=== PATIENT | male | born 1985 | race Caucasian/White ===

== ENCOUNTER 2017-01-02 18:19 | Emergency (ER) | payer OTHER ==
[~2017-01-02] VITALS: Ht 172.7 cm; Wt 72.6 kg
[2017-01-02 19:47] VITALS: BP 157/104
--- NOTE | 2017-01-02 19:54 | NUR ---
ekg done, NSR
--- NOTE | 2017-01-02 20:23 | NUR ---
PT TAKEN TO [facility] FROM [facility]
--- NOTE | 2017-01-02 20:28 | NUR ---
PT RETURN FROM XRAY TO LOBBY
--- NOTE | 2017-01-02 20:39 | NUR ---
PT TAKEN TO BED 4
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
[2017-01-02] MEDS ORDERED: LIDOCAINE VISCOUS 2% 20 ML UDC PO ONE (21:05)
[2017-01-02] MEDS ORDERED: BELLADONNA/PHENOBARBITAL 5 ML ORASYR PO ONE (21:05)
[2017-01-02] MEDS ORDERED: ALUMINUM HYD/MAG/SIMETHICONE 30 ML UDC PO ONE (21:05)
--- NOTE | 2017-01-02 21:17 | NUR ---
Dr. Reynolds evaluating patient at bedside.
--- NOTE | 2017-01-02 21:45 | NUR ---
Patient discharged with v/s stable. Written and verbal after care instructions given and explained. Patient alert, oriented and verbalized understanding of instructions. Ambulatory with steady gait. All questions addressed prior to discharge. ID band removed. Patient advised to follow up with PMD. Rx of MOTRIN 800MG PO given. Patient educated on indication of medication including possible reaction and side effects. Opportunity to ask questions provided and answered.
[2017-01-02 21:47] VITALS: BP 140/83
== END 2017-01-02 21:45 | disposition home or self-care (01) ==
LOC: MED 18:19
DX: M94.0 Chondrocostal junction syndrome [Tietze] (principal); J45.909 Unspecified asthma, uncomplicated; I10 Essential (primary) hypertension; F17.200 Nicotine dependence, unspecified, uncomplicated

== ENCOUNTER 2017-05-24 19:32 | Emergency (ER) | payer OTHER ==
[~2017-05-24] VITALS: Ht 172.7 cm; Wt 77.1 kg
[2017-05-24 20:12] VITALS: BP 138/89
--- NOTE | 2017-05-24 21:54 | NUR ---
TO ER OF4
--- NOTE | 2017-05-24 22:00 | NUR ---
PT BIB FAMILY C/O SEVERE RT HAND PAIN,AND SWELLING X 1-3 WEEKS S/P REPETITIVE HAND MOVEMENT AT WORK. PT STS" I KEEP ON ASKING BY BOSS TO SEND ME TO THE DOCTORS OFFICE BACAUSE I CANT TAKE THIS PAIN ANY MORE. BUT THEY KEEP TELLING ME NO. 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 NOTED TO RT HAND, CAP REFILL-IMM. PT DENIES N/V/D; SKIN IS INTACT, PINK/WARM/DRY; AAOX4, PERRL, WITH EVEN AND STEADY GAIT; LUNGS CLEAR BL, BREATHING UNLABORED; HR EVEN AND REGULAR, BL PERIPHERAL PULSES PRESENT; BS ACTIVE X4, NO TENDERNESS TO PALPATION. PT DENIES ANY FEVER, CP, SOB, OR COUGH AT THIS TIME; PT STATES 10/10 PAIN AT THIS TIME; VSS; PATIENT POSITIONED FOR COMFORT; HOB ELEVATED; BEDRAILS UP X2; BED DOWN. ICE PACK GIVEN FOR PAIN.
--- NOTE | 2017-05-24 22:43 | NUR ---
Juvencio schrader in [facility] - 05/24/17 at 2244 by MEDCHRISTINA Patient being evaluated by physician.
--- NOTE | 2017-05-24 22:50 | NUR ---
Patient being evaluated by physician.
[2017-05-24] MEDS ORDERED: oxyCODONE/APAP 5/325 MG 1 TAB TAB PO ONE (23:00)
[2017-05-24 23:38] VITALS: BP 131/85
--- NOTE | 2017-05-24 23:38 | NUR ---
Patient discharged with v/s stable. Written and verbal after care instructions given and explained. Patient alert, oriented and verbalized understanding of instructions. Ambulatory with steady gait. All questions addressed prior to discharge. ID band removed. Patient advised to follow up with PMD. Rx of IBUPROFEN, PERCOCET given. Patient educated on indication of medication including possible reaction and side effects. Opportunity to ask questions provided and answered.
== END 2017-05-24 23:38 | disposition home or self-care (01) ==
LOC: MED 19:32
CPT/HCPCS: 73130; 99284

== ENCOUNTER 2018-03-25 07:47 | Emergency (ER) | payer SELFPAY ==
[~2018-03-25] VITALS: Ht 172.7 cm; Wt 76.2 kg
[2018-03-25 07:49] VITALS: BP 140/84
--- NOTE | 2018-03-25 07:55 | NUR ---
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 PT, STATES " MY ANKLE HURTS A LOT 10/10 RADIATING PAIN BECAUSE LAST NIGHT IN SOFTBALL I HURT MY ANKLE". 10/10 RADIATING PAIN FROM L ANKLE DOWN TO FOOT THAT IS DESCRIBES SHARP AND CONTINOUS. RR EVENA ND UNLABORED . SKIN PINK , WARM , AND DRY, CAP REFILL ON BILATERAL HANDS AND FEET LESS THAN 3 SEC. NO BRUISING NOTED. SWELLING TO THE L ANKLE NOTED. L ANKLE SENSITIVE TO TOUCH. DENIES N/V/D. NO SOB. NO CHEST PAIN, AAO X 4. ER. . NOTIFIED. WILL CONTINUE TO MONITOR.
--- NOTE | 2018-03-25 07:55 | NUR ---
TAKEN BY WHEELCHAIR TO BED 2
--- NOTE | 2018-03-25 08:00 | NUR ---
PT. TAKEN TO XRAY BY CORPORATE ACCOUNTANT VIA WHEELCHAIR. Addendum: 03/25/18 at 0811 by [email or web address] ELEVATED LLG ; PAIN 09/04 AT THIS TIME.
--- NOTE | 2018-03-25 08:11 | NUR ---
PT RETURNED FROM X RAY.
[2018-03-25] MEDS ORDERED: IBUPROFEN 800 MG TAB PO ONE (08:35)
--- NOTE | 2018-03-25 09:10 | NUR ---
Crutches dispensed. Taught proper use, patient returned demo.
--- NOTE | 2018-03-25 09:18 | NUR ---
Patient discharged with v/s stable. Written and verbal after care instructions given and explained. Patient alert, oriented and verbalized understanding of instructions. Ambulatory with crutches. All questions addressed prior to discharge. ID band removed. Patient advised to follow up with PMD. Rx of ibuprofen given. Patient educated on indication of medication including possible reaction and side effects. Opportunity to ask questions provided and answered.
[2018-03-25 09:19] VITALS: BP 121/73
== END 2018-03-25 09:18 | disposition home or self-care (01) ==
LOC: MED 07:47
DX: S93.402A Sprain of unspecified ligament of left ankle, initial encounter (principal); J45.909 Unspecified asthma, uncomplicated; I10 Essential (primary) hypertension; X50.1XXA Overexertion from prolonged static or awkward postures, initial encounter; Y93.64 Activity, baseball; Y92.89 Other specified places as the place of occurrence of the external cause; Y99.8 Other external cause status
CPT/HCPCS: 73610; 99284

== ENCOUNTER 2018-03-27 16:59 | Emergency (ER) | payer OTHER ==
[~2018-03-27] VITALS: Ht 172.7 cm; Wt 76.2 kg
[2018-03-27 17:06] VITALS: BP 151/80
--- NOTE | 2018-03-27 17:09 | NUR ---
PT BACK TO LOBBY
--- NOTE | 2018-03-27 18:13 | NUR ---
PATIENT TO ER BED 11
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
[2018-03-27] MEDS ORDERED: KETOROLAC 60 MG/2 ML VIAL IM ONE (19:05)
--- NOTE | 2018-03-27 19:15 | NUR ---
RECEIVED REPORT FROM DIMITRI HERRERA FOR TRANSFER OF CARE. PT RESTING IN STABLE CONDITION WITH FAM AT BEDSIDE
--- NOTE | 2018-03-27 19:31 | NUR ---
Patient discharged with v/s stable. Written and verbal after care instructions given and explained. Patient alert, oriented and verbalized understanding of instructions. Ambulatory with steady gait. All questions addressed prior to discharge. ID band removed. Patient advised to follow up with PMD. Rx of TRAMADOL 50MG TAB given. Patient educated on indication of medication including possible reaction and side effects. Opportunity to ask questions provided and answered.
[2018-03-27 19:34] VITALS: BP 122/65
== END 2018-03-27 19:31 | disposition home or self-care (01) ==
LOC: MED 16:59
DX: S93.492A Sprain of other ligament of left ankle, initial encounter (principal); J45.909 Unspecified asthma, uncomplicated; I10 Essential (primary) hypertension; X58.XXXA Exposure to other specified factors, initial encounter; Y93.64 Activity, baseball; Y92.89 Other specified places as the place of occurrence of the external cause; Y99.8 Other external cause status
CPT/HCPCS: 29515; 96372; 99283; J1885

== ENCOUNTER 2018-07-21 20:13 | Emergency (ER) | payer OTHER ==
[~2018-07-21] VITALS: Ht 172.7 cm; Wt 78.5 kg
[2018-07-21 20:24] VITALS: BP 113/73
--- NOTE | 2018-07-21 20:25 | NUR ---
TO LOBBY A/W BED , AMBULATORY, VSS, MAXINE NOTED
--- NOTE | 2018-07-21 20:49 | NUR ---
PT TAKEN TO BED 6
--- NOTE | 2018-07-21 21:00 | NUR ---
33/M CAME IN ED WITH FAMILY/FRIEND, C/O 07/05 SUDDEN ONSET SHARP L EAR PAIN, X2 DAYS. PT STATED HE WAS WORKING WHEN THE PAIN STARTED. PT DENIES TRAUMA OR SWIMMING RECENTLY. PT DENIES FEVER, N/V/D. HX HTN, ASTHMA. RX INHALER PRN. NKA. ER MADE AWARE.
--- NOTE | 2018-07-21 22:38 | NUR ---
PT RESTING IN BED, L EAR PAIN REMAINS AT 8/10, VSS, ALL NEEDS MET AT THIS TIME.
--- NOTE | 2018-07-21 23:08 | NUR ---
Dr. Mcneal evaluating patient at bedside.
--- NOTE | 2018-07-21 23:40 | NUR ---
EMT AT BEDSIDE TO PERFORM L EAR LAVAGE.
--- NOTE | 2018-07-21 23:40 | NUR ---
PER ORDER FROM DR LAVAGE PROCEDURE PERFORMED ON L EAR. WATER AND HYDROGEN PEROXIDE SOLUTION USED TO IRRIGATE EAR, APPROXIMATELY 1500 CC. PT REPORTED FEELING RELIEF AND COULD HEAR BETTER FOLLOWING PROCEDURE. NOTIFIED DR OF PROGRESS.
[2018-07-22 00:27] VITALS: BP 120/60
--- NOTE | 2018-07-22 00:27 | NUR ---
Patient discharged with v/s stable. Written and verbal after care instructions given and explained. Patient alert, oriented and verbalized understanding of instructions. Ambulatory with steady gait. All questions addressed prior to discharge. ID band removed. Patient advised to follow up with PMD. Rx of CORTISPORIN DROPS, MOTRIN given. Patient educated on indication of medication including possible reaction and side effects. Opportunity to ask questions provided and answered.
== END 2018-07-22 00:27 | disposition home or self-care (01) ==
LOC: MED 20:13
DX: H60.92 Unspecified otitis externa, left ear (principal); J45.909 Unspecified asthma, uncomplicated; I10 Essential (primary) hypertension
CPT/HCPCS: 99283

== ENCOUNTER 2018-10-08 17:44 | Emergency (ER) | payer OTHER ==
[~2018-10-08] VITALS: Ht 175.3 cm; Wt 76.2 kg
[2018-10-08 17:55] VITALS: BP 133/86
[2018-10-08] MEDS ORDERED: ONDANSETRON 4 MG/2 ML VIAL IVP ONE (18:00)
[2018-10-08] MEDS ORDERED: NACL 0.9% 1,000 ML IV ONE (18:00)
--- NOTE | 2018-10-08 18:02 | NUR ---
PT TAKEN TO BED 2
--- NOTE | 2018-10-08 18:05 | NUR ---
33/M BIB GIRLFRIEND C/O N/V/D & GENERAL AB PAIN X 7 DAYS. HX; ASTHMA. SKIN IS PINK/WARM/DRY; AAOX4 WITH EVEN AND STEADY GAIT; PT DENIES ANY FEVER, CP, SOB, OR COUGH AT THIS TIME; PATIENT STATES PAIN OF1 0/10 AT THIS TIME; PATIENT POSITIONED FOR COMFORT; HOB ELEVATED; BEDRAILS UP X2; BED DOWN. ER MD MADE AWARE OF PT STATUS.
--- NOTE | 2018-10-08 18:35 | NUR ---
Patient being evaluated by DR MONAHAN at bedside.
[2018-10-08 18:44] LABS: BASOPHILS # (AUTO) 0.1 K/uL (0.00-0.22); BASOPHILS % (AUTO) 1.1 % (0.0-2.0); EOSINOPHILS # (AUTO) 0.4 K/uL (0-0.4); HEMATOCRIT 49.4 % (36-52); HEMOGLOBIN 16.8 g/dL (12.0-18.0); LYMPHOCYTES # (AUTO) 2.2 K/uL (2.0-11.5); LYMPHOCYTES % (AUTO) 31.5 % (20.5-51.1); MEAN CORPUSCULAR HEMOGLOBIN 30 pg (27-31); MEAN CORPUSCULAR HGB CONC 34 g/dL (33-37); MEAN CORPUSCULAR VOLUME 88.8 fL (80-94); MONOCYTES # (AUTO) 0.6 K/uL (0.8-1.0); MONOCYTES % (AUTO) 7.9 % (1.7-9.3); NEUTROPHILS # (AUTO) 3.9 K/uL (1.8-7.7); NEUTROPHILS % (AUTO) 54.5 % (42.2-75.2); PLATELET COUNT (AUTO) 246 K/uL (140-450); RED BLOOD CELL COUNT(AUTO) 5.56 MIL/uL (4.20-6.10); RED CELL DISTRIBUTION WIDTH 12.8 % (11.6-13.7); WHITE BLOOD COUNT (AUTO) 7.1 K/uL (4.8-10.8)
[2018-10-08] MEDS ORDERED: KETOROLAC 30 MG/ML VIAL IVP ONE (18:45)
--- NOTE | 2018-10-08 19:08 | NUR ---
Pt report given to JUANY HERRERA. Transfer of care at this time.
--- NOTE | 2018-10-08 19:10 | NUR ---
REPORT FROM JAVIER GAINES AT THIS TIME
[2018-10-08 19:13] LABS: CARBON DIOXIDE 28.7 mmol/L (21-32); CREATININE 0.9 mg/dL (0.7-1.3); POTASSIUM 3.7 mmol/L (3.5-5.1)
[2018-10-08 19:20] LABS: ALBUMIN 3.8 g/dL (3.4-5.0); TOTAL BILIRUBIN 0.3 mg/dL (0.0-1.0)
--- NOTE | 2018-10-08 19:35 | NUR ---
ULTRASOUND AT BEDSIDE.
[2018-10-08 20:55] VITALS: BP 137/82
--- NOTE | 2018-10-08 21:01 | NUR ---
Patient discharged with v/s stable. Written and verbal after care instructions given and explained. Patient alert, oriented and verbalized understanding of instructions. Ambulatory with steady gait. All questions addressed prior to discharge. ID band removed. Patient advised to follow up with PMD. Rx of TYLENOL WITH CODE#3,MYLANATA 200MG given. Patient educated on indication of medication including possible reaction and side effects. Opportunity to ask questions provided and answered.
== END 2018-10-08 21:01 | disposition home or self-care (01) ==
LOC: MED 17:44
DX: R10.11 Right upper quadrant pain (principal); R11.2 Nausea with vomiting, unspecified; R19.7 Diarrhea, unspecified; J45.909 Unspecified asthma, uncomplicated; I10 Essential (primary) hypertension
CPT/HCPCS: 36415; 74022; 76705; 80053; 83690; 85025; 96361; 96374; 96375; 99285; J1885; J2405; J7030; Q0092

== ENCOUNTER 2018-12-17 08:00 | Emergency (ER) | payer OTHER ==
[~2018-12-17] VITALS: Ht 175.3 cm; Wt 82.6 kg
[2018-12-17 08:05] VITALS: BP 125/71
--- NOTE | 2018-12-17 08:37 | NUR ---
bib self with c/o 07/05 epigastric pain x yesterday morning with vomitting, pain worse when laying to his side. Patient denies any cough, fevers, or diarrhea. Patient also reports of intermittent hiccuping. hx--fatty liver, asthma rx--patient denies
[2018-12-17] MEDS ORDERED: LIDOCAINE VISCOUS 2% 20 ML UDC PO ONE (08:50)
[2018-12-17] MEDS ORDERED: ONDANSETRON 4 MG ODT PO ONE (08:50)
[2018-12-17] MEDS ORDERED: ALUMINUM HYD/MAG/SIMETHICONE 30 ML UDC PO ONE (08:50)
[2018-12-17] MEDS ORDERED: FAMOTIDINE 20 MG TAB PO ONE (08:50)
[2018-12-17 09:11] LABS: BASOPHILS # (AUTO) 0.1 K/uL (0.00-0.22); BASOPHILS % (AUTO) 1.3 % (0.0-2.0); EOSINOPHILS # (AUTO) 0.2 K/uL (0-0.4); EOSINOPHILS % (AUTO) 2.5 % (0.0-4.0); HEMATOCRIT 50.7 % (36-52); LYMPHOCYTES # (AUTO) 1.5 K/uL (2.0-11.5); LYMPHOCYTES % (AUTO) 20.7 % (20.5-51.1); MEAN CORPUSCULAR HEMOGLOBIN 30 pg (27-31); MEAN CORPUSCULAR HGB CONC 34 g/dL (33-37); MEAN CORPUSCULAR VOLUME 88.4 fL (80-94); MONOCYTES # (AUTO) 0.6 K/uL (0.8-1.0); MONOCYTES % (AUTO) 8.1 % (1.7-9.3); NEUTROPHILS % (AUTO) 67.4 % (42.2-75.2); PLATELET COUNT (AUTO) 237 K/uL (140-450); RED BLOOD CELL COUNT(AUTO) 5.73 MIL/uL (4.20-6.10); RED CELL DISTRIBUTION WIDTH 12.6 % (11.6-13.7); WHITE BLOOD COUNT (AUTO) 7.4 K/uL (4.8-10.8)
[2018-12-17 09:16] LABS: ANION GAP 9.8 (8-16); CARBON DIOXIDE 30.1 mmol/L (21-32); POTASSIUM 3.9 mmol/L (3.5-5.1)
[2018-12-17 09:24] LABS: ALBUMIN 4.1 g/dL (3.4-5.0); TOTAL BILIRUBIN 0.5 mg/dL (0.0-1.0)
[2018-12-17 10:27] VITALS: BP 145/86
--- NOTE | 2018-12-17 10:27 | NUR ---
Patient discharged with v/s stable. Written and verbal after care instructions given and explained. Patient alert, oriented and verbalized understanding of instructions. Ambulatory with steady gait. All questions addressed prior to discharge. ID band removed. Patient advised to follow up with PMD. Rx of Zofran and Omeprazole given. Patient educated on indication of medication including possible reaction and side effects. Opportunity to ask questions provided and answered.
== END 2018-12-17 10:27 | disposition home or self-care (01) ==
LOC: MED 08:00
DX: K21.9 Gastro-esophageal reflux disease without esophagitis (principal); J45.909 Unspecified asthma, uncomplicated; I10 Essential (primary) hypertension
CPT/HCPCS: 36415; 80053; 81002; 83690; 85025; 99284; Q0162

== ENCOUNTER 2019-07-09 02:22 | Emergency (ER) | payer OTHER ==
[~2019-07-09] VITALS: Ht 175.3 cm; Wt 77.1 kg
[2019-07-09 02:30] VITALS: BP 167/111
--- NOTE | 2019-07-09 02:40 | NUR ---
34 YO M BIB PRESENTS TO ED C/O 09/04 LOWER LEFT MOLAR PAIN X 2 DAYS. PT HAS NOT BEEN TO DENTIST YET. PT STATES HE TOOK TYLENOL WITH CODEINE 2 HOURS AGO WITH NO RELIEF. -- PT AWAKE, ALERT, DIFFICULTY RESPONDING TO QUESTIONS DUE TO PAIN. -- SKIN PINK, WARM, DRY. BREATHING EVEN, UNLABORED. PMH-- DENIES
[2019-07-09] MEDS ORDERED: KETOROLAC 60 MG/2 ML VIAL IM ONE (02:45)
--- NOTE | 2019-07-09 02:55 | NUR ---
MEDICATION ADMINISTERED ORDERED. RISKS/BENEFITS REVIEWED. WILL CONTINUE TO MONITOR.
--- NOTE | 2019-07-09 03:30 | NUR ---
PT IS SLEEPING, AROUSABLE TO VERBAL STIMULI. PT STATES HE FEELS BETTER. REPORTS PAIN 4/10.
[2019-07-09 03:32] VITALS: BP 145/98
--- NOTE | 2019-07-09 03:32 | NUR ---
Patient discharged with v/s stable. Written and verbal after care instructions given and explained. Patient alert, oriented and verbalized understanding of instructions. Ambulatory with steady gait. All questions addressed prior to discharge. ID band removed. Patient advised to follow up with PMD. Rx of [place] and Motrin given. Patient educated on indication of medication including possible reaction and side effects. Opportunity to ask questions provided and answered.
== END 2019-07-09 03:32 | disposition home or self-care (01) ==
LOC: MED 02:22
DX: K08.89 Other specified disorders of teeth and supporting structures (principal); I10 Essential (primary) hypertension; J45.909 Unspecified asthma, uncomplicated; F17.210 Nicotine dependence, cigarettes, uncomplicated
CPT/HCPCS: 96372; 99283; J1885

== ENCOUNTER 2020-06-12 15:59 | Emergency (ER) | payer OTHER ==
[~2020-06-12] VITALS: Ht 172.7 cm; Wt 78.1 kg
[2020-06-12 16:43] VITALS: BP 130/82
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
[2020-06-12] MEDS ORDERED: KETOROLAC 60 MG/2 ML VIAL IM ONE (17:30)
[2020-06-12 18:21] VITALS: BP 125/84
--- NOTE | 2020-06-12 18:21 | NUR ---
Patient discharged with v/s stable. Written and verbal after care instructions given and explained. Patient alert, oriented and verbalized understanding of instructions. Ambulatory with steady gait. All questions addressed prior to discharge. ID band removed. Patient advised to follow up with PMD. Rx of flexeril/tramadol given. Patient educated on indication of medication including possible reaction and side effects. Opportunity to ask questions provided and answered.
== END 2020-06-12 18:21 | disposition home or self-care (01) ==
LOC: MED 15:59
DX: S16.1XXA Strain of muscle, fascia and tendon at neck level, initial encounter (principal); J45.909 Unspecified asthma, uncomplicated; I10 Essential (primary) hypertension; V89.2XXA Person injured in unspecified motor-vehicle accident, traffic, initial encounter; Y93.89 Activity, other specified; Y92.89 Other specified places as the place of occurrence of the external cause; Y99.8 Other external cause status
CPT/HCPCS: 96372; 99283; J1885

== ENCOUNTER 2020-10-18 15:38 | Emergency (ER) | payer OTHER ==
[~2020-10-18] VITALS: Ht 175.3 cm; Wt 80.7 kg
[2020-10-18 16:26] VITALS: BP 109/87
--- NOTE | 2020-10-18 16:32 | NUR ---
WAIT AT LOBBY. HANED ON URINE CUP.
[2020-10-18 17:19] LABS: BASOPHILS # (AUTO) 0.1 K/uL (0.00-0.22); BASOPHILS % (AUTO) 0.9 % (0.0-2.0); EOSINOPHILS # (AUTO) 0.3 K/uL (0-0.4); EOSINOPHILS % (AUTO) 5.5 % (0.0-4.0); HEMATOCRIT 47.7 % (36-52); HEMOGLOBIN 16.3 g/dL (12.0-18.0); MEAN CORPUSCULAR HEMOGLOBIN 30 pg (27-31); MEAN CORPUSCULAR HGB CONC 34 g/dL (33-37); MEAN CORPUSCULAR VOLUME 88.1 fL (80-94); MONOCYTES # (AUTO) 0.5 K/uL (0.8-1.0); MONOCYTES % (AUTO) 8.3 % (1.7-9.3); NEUTROPHILS # (AUTO) 3.1 K/uL (1.8-7.7); NEUTROPHILS % (AUTO) 52.3 % (42.2-75.2); PLATELET COUNT (AUTO) 236 K/uL (140-450); RED BLOOD CELL COUNT(AUTO) 5.41 MIL/uL (4.20-6.10); RED CELL DISTRIBUTION WIDTH 12.9 % (11.6-13.7); WHITE BLOOD COUNT (AUTO) 5.9 K/uL (4.8-10.8)
[2020-10-18 17:29] LABS: APPEARANCE,URINE CLEAR (CLEAR); BILIRUBIN,URINE NEGATIVE (NEGATIVE); BLOOD, URINE NEGATIVE (NEGATIVE); COLOR,URINE YELLOW (YELLOW); LEUKOCYTE ESTERASE ,URINE NEGATIVE (NEGATIVE); NITRITE, URINE NEGATIVE (NEGATIVE); UGLUCOSE NEGATIVE (NEGATIVE)
[2020-10-18 17:32] LABS: ALBUMIN 4.1 g/dL (3.4-5.0); CARBON DIOXIDE 27.6 mmol/L (21-32); CREATININE 1.1 mg/dL (0.6-1.3); POTASSIUM 3.6 mmol/L (3.5-5.1); TOTAL BILIRUBIN 0.4 mg/dL (0.0-1.0)
--- NOTE | 2020-10-18 18:20 | NUR ---
PT PRESENTS TO THE ER WITH NAUSEA, 3 EPISODES OF VOMITING, AND DIFFUSED ABDOMINAL PAIN SINCE YERSTERDAY. DENIES COUGH, FEVER, CHILLS, SOB, DIARRHEA, OR SICK CONTACT. ABDOMEN IS SOFT, SLIGHT DISTENDED, WITHOUT TENDERNESS OR REBOUND TENDERNESS. PSOAS SIGN IS NEGATIVE. SKIN IS PINK/WARM/DRY; AAOX4 WITH EVEN AND STEADY GAIT; LUNGS CLEAR BL; HR EVEN AND REGULAR; PATIENT STATES PAIN OF 8/10 AT THIS TIME; VSS; PATIENT POSITIONED FOR COMFORT; HOB ELEVATED; BEDRAILS UP X1; BED DOWN. ER MD MADE AWARE OF PT STATUS.
[2020-10-18] MEDS ORDERED: ONDANSETRON 4 MG ODT PO ONE (18:35)
[2020-10-18] MEDS ORDERED: HYDROcodone/APAP 5/325 MG 1 TAB TAB PO ONE (18:35)
--- NOTE | 2020-10-18 18:48 | NUR ---
PT IS BEING TAKEN TO CT SCAN VIA [facility].
[2020-10-18 19:24] VITALS: BP 107/85
--- NOTE | 2020-10-18 19:24 | NUR ---
Patient discharged with v/s stable. Written and verbal after care instructions given and explained. Patient alert, oriented and verbalized understanding of instructions. Ambulatory with steady gait. All questions addressed prior to discharge. ID band removed. Patient advised to follow up with PMD. Rx of [place] and Zofran given. Patient educated on indication of medication including possible reaction and side effects. Opportunity to ask questions provided and answered.
== END 2020-10-18 19:24 | disposition home or self-care (01) ==
LOC: MED 15:38
DX: K85.90 Acute pancreatitis without necrosis or infection, unspecified (principal); J45.909 Unspecified asthma, uncomplicated; I10 Essential (primary) hypertension
CPT/HCPCS: 36415; 74176; 80053; 81003; 83690; 85025; 99284; Q0162

== ENCOUNTER 2020-12-06 15:07 | Emergency (ER) | payer OTHER ==
[~2020-12-06] VITALS: Ht 172.7 cm; Wt 80.7 kg
[2020-12-06 15:18] VITALS: BP 137/94
--- NOTE | 2020-12-06 15:20 | NUR ---
triaged and waiting in lobby.
[2020-12-06] MEDS ORDERED: KETOROLAC 30 MG/ML VIAL IM ONE (15:45)
[2020-12-06 15:57] VITALS: BP 137/94
--- NOTE | 2020-12-06 16:50 | NUR ---
Patient discharged with v/s stable. Written and verbal after care instructions given and explained. Patient alert, oriented and verbalized understanding of instructions. Ambulatory with steady gait. All questions addressed prior to discharge. ID band removed. Patient advised to follow up with PMD. Rx of medrol, ibuprofen, flexeril given. Patient educated on indication of medication including possible reaction and side effects. Opportunity to ask questions provided and answered.
== END 2020-12-06 16:50 | disposition home or self-care (01) ==
LOC: MED 15:07
DX: M54.2 Cervicalgia (principal); G89.29 Other chronic pain; J45.909 Unspecified asthma, uncomplicated; I10 Essential (primary) hypertension
CPT/HCPCS: 96372; 99283; J1885

== ENCOUNTER 2021-03-03 15:40 | Emergency (ER) | payer OTHER ==
[~2021-03-03] VITALS: Ht 172.7 cm; Wt 77.6 kg
[2021-03-03 15:43] VITALS: BP 147/72
[2021-03-03] MEDS ORDERED: ACET-2619 PO (16:27)
[2021-03-03] MEDS ORDERED: LORA10TA19 PO (16:27)
[2021-03-03] MEDS ORDERED: IBUP-1842 PO (16:27)
[2021-03-03] MEDS ORDERED: ROB PO (16:27)
[2021-03-03 17:02] VITALS: BP 147/72
== END 2021-03-03 17:03 | disposition home or self-care (01) ==
LOC: MED 15:40
DX: J06.9 Acute upper respiratory infection, unspecified (principal); Z20.822 Contact with and (suspected) exposure to COVID-19; B97.89 Other viral agents as the cause of diseases classified elsewhere; J45.909 Unspecified asthma, uncomplicated; I10 Essential (primary) hypertension; F12.90 Cannabis use, unspecified, uncomplicated; Z79.899 Other long term (current) drug therapy
CPT/HCPCS: 71045; 87804; 99284; U0003

== ENCOUNTER 2021-04-13 11:55 | Emergency (ER) | payer OTHER ==
[~2021-04-13] VITALS: Ht 172.7 cm; Wt 80.7 kg
[~2021-04-13 11:55] MED LIST: ACET-2619 PO; IBUP-1842 PO; LORA10TA19 PO; ROB PO
[2021-04-13 12:00] VITALS: BP 138/88
--- NOTE | 2021-04-13 12:05 | NUR ---
Patient ambulated to restroom with a steady gait
--- NOTE | 2021-04-13 12:06 | NUR ---
PT TAKEN TO BED 2.
--- NOTE | 2021-04-13 12:06 | NUR ---
35 Y/M PRESENTS TO ED FOR ABD PAIN, 8/10 HEADACHE, N/V, SUBJECTIVE FEVER SINCE YESTERDAY. REPORTS TAKING TYLENOL WITH RELIEF PMH-HTN, ASTHMA RX- TYLENOL, ZONAHUN NKDA
[2021-04-13] MEDS: KETOROLAC 60 MG/2 ML VIAL IM ONE (12:48)
[2021-04-13] MEDS: ONDANSETRON 4 MG ODT PO ONE (12:48)
--- NOTE | 2021-04-13 13:08 | NUR ---
RAPHAEL SKINNER AT BEDSIDE EVALUATING PT
--- NOTE | 2021-04-13 13:42 | NUR ---
RAPHAEL SKINNER AT BEDSIDE EVALUATING PT
[2021-04-13] MEDS ORDERED: ONDA-24 PO (13:47)
[2021-04-13] MEDS ORDERED: FAMO-90 PO (13:47)
[2021-04-13] MEDS ORDERED: ACET-10509 PO (13:47)
[2021-04-13 13:51] VITALS: BP 138/88
--- NOTE | 2021-04-13 13:51 | NUR ---
Patient discharged with v/s stable. Written and verbal after care instructions given and explained. Patient alert, oriented and verbalized understanding of instructions. Ambulatory with steady gait. All questions addressed prior to discharge. ID band removed. Patient advised to follow up with PMD. Rx of tylenol extra strength, pepcid, zofran given. Patient educated on indication of medication including possible reaction and side effects. Opportunity to ask questions provided and answered.
== END 2021-04-13 13:51 | disposition home or self-care (01) ==
LOC: MED 11:55
DX: R51.9 Headache, unspecified (principal); R10.13 Epigastric pain; R11.0 Nausea; J45.909 Unspecified asthma, uncomplicated; F12.90 Cannabis use, unspecified, uncomplicated; Z79.899 Other long term (current) drug therapy
CPT/HCPCS: 81002; 96372; 99283; J1885; Q0162

== ENCOUNTER 2021-05-31 12:00 | Emergency (ER) | payer OTHER ==
[~2021-05-31] VITALS: Ht 172.7 cm; Wt 79.8 kg
[~2021-05-31 12:00] MED LIST changes: +ACET-10509 PO; +FAMO-90 PO; +ONDA-24 PO
[2021-05-31 12:03] VITALS: BP 143/99
--- NOTE | 2021-05-31 12:25 | NUR ---
35/M presents to ED with c/o chest pain. Patient states he has had hiccups for the last 3 days and states today he woke up with sharp 9/10 constant chest pain. Patient states pain is non radiating, denies taking anything at home for pain. Patient denies shortness of breath, fever or chills. Chest is non tender to touch, denies injury or trauma.
--- NOTE | 2021-05-31 13:17 | NUR ---
Labs collected bedside and walked to lab.
[2021-05-31 13:26] LABS: BASOPHILS # (AUTO) 0.1 K/uL (0.00-0.22); BASOPHILS % (AUTO) 0.9 % (0.0-2.0); EOSINOPHILS # (AUTO) 0.2 K/uL (0-0.4); EOSINOPHILS % (AUTO) 3.5 % (0.0-4.0); HEMATOCRIT 48.9 % (36-52); HEMOGLOBIN 16.6 g/dL (12.0-18.0); LYMPHOCYTES # (AUTO) 1.6 K/uL (2.0-11.5); LYMPHOCYTES % (AUTO) 26.9 % (20.5-51.1); MEAN CORPUSCULAR HEMOGLOBIN 30 pg (27-31); MEAN CORPUSCULAR HGB CONC 34 g/dL (33-37); MEAN CORPUSCULAR VOLUME 88.8 fL (80-94); MONOCYTES # (AUTO) 0.5 K/uL (0.8-1.0); NEUTROPHILS # (AUTO) 3.6 K/uL (1.8-7.7); NEUTROPHILS % (AUTO) 60.7 % (42.2-75.2); PLATELET COUNT (AUTO) 258 K/uL (140-450); RED CELL DISTRIBUTION WIDTH 13.1 % (11.6-13.7); WHITE BLOOD COUNT (AUTO) 5.9 K/uL (4.8-10.8)
[2021-05-31 13:54] LABS: ALBUMIN 4.4 g/dL (3.4-5.0); ANION GAP 11.4 (8-16); CARBON DIOXIDE 28.7 mmol/L (21-32); POTASSIUM 4.1 mmol/L (3.5-5.1); TOTAL BILIRUBIN 0.4 mg/dL (0.0-1.0)
[2021-05-31] MEDS ORDERED: THO25 PO (14:38)
[2021-05-31 15:07] VITALS: BP 154/85
--- NOTE | 2021-05-31 15:08 | NUR ---
Patient discharged with v/s stable. Written and verbal after care instructions given and explained. Patient alert, oriented and verbalized understanding of instructions. Ambulatory with steady gait. All questions addressed prior to discharge. ID band removed. Patient advised to follow up with PMD. Rx of Thorazine given. Patient educated on indication of medication including possible reaction and side effects. Opportunity to ask questions provided and answered.
== END 2021-05-31 15:08 | disposition home or self-care (01) ==
LOC: MED 12:00
DX: R07.9 Chest pain, unspecified (principal); R06.6 Hiccough; J45.909 Unspecified asthma, uncomplicated; Z79.899 Other long term (current) drug therapy
CPT/HCPCS: 36415; 71045; 80053; 83690; 84484; 85025; 93005; 99285

== ENCOUNTER 2021-08-10 15:03 | Emergency (ER) | payer OTHER ==
[~2021-08-10] VITALS: Ht 175.3 cm; Wt 81.6 kg
[~2021-08-10 15:03] MED LIST changes: +THO25 PO
[2021-08-10 15:15] VITALS: BP 131/77
--- NOTE | 2021-08-10 15:21 | NUR ---
PT AMBULATED TO ER BED 1 WITH A STEADY GAIT.
--- NOTE | 2021-08-10 15:32 | NUR ---
36 Y/O MALE C/O HEADACHE 07/05 DESCRIBES ACHING NON-RADIATING X1DAY. PT TOOK TYLENOL 3 HOURS AGO WHICH PROVIDED MILD RELIEF. DENIES N/V, DENIES BLURRY OF VISION/DIZZINESS, DENIES FEVER/CHILLS. PMH: ASTHMA NKA
--- NOTE | 2021-08-10 15:38 | NUR ---
DR. KIRK AT PT BEDSIDE FOR FURTHER EVALUATION.
[2021-08-10] MEDS ORDERED: PROCHLORPERAZINE 10 MG/2 ML VIAL IM ONE (15:45)
[2021-08-10] MEDS ORDERED: KETOROLAC 60 MG/2 ML VIAL IM ONE (15:45)
--- NOTE | 2021-08-10 16:36 | NUR ---
PT SLEEPING, VISIBLE EQUAL RISE AND FALL OF CHEST, VSS, WILL CONTINUE TO MONITOR.
[2021-08-10 17:11] VITALS: BP 131/77
--- NOTE | 2021-08-10 17:12 | NUR ---
Patient discharged with v/s stable. Written and verbal after care instructions given and explained MIGRAIN HEADACHES. Patient verbalized understanding. Ambulatory with steady gait. All questions addressed prior to discharge. Advised to follow up with PMD.
== END 2021-08-10 17:12 | disposition home or self-care (01) ==
LOC: MED 15:03
DX: G43.909 Migraine, unspecified, not intractable, without status migrainosus (principal); J45.909 Unspecified asthma, uncomplicated; Z79.899 Other long term (current) drug therapy
CPT/HCPCS: 96372; 99284; J0780; J1885; Q0163

== ENCOUNTER 2021-09-07 17:41 | Emergency (ER) | payer OTHER ==
[~2021-09-07] VITALS: Ht 175.3 cm; Wt 81.6 kg
[2021-09-07 17:59] VITALS: BP 141/89
--- NOTE | 2021-09-07 18:02 | NUR ---
PT SENT TO LOBBY
--- NOTE | 2021-09-07 20:09 | NUR ---
PT AMBULATORY TO BED #5
--- NOTE | 2021-09-07 20:10 | NUR ---
36 YO M BIB SELF WITH C/C OF VOMITING X1 DAY, 2 EPISODES OF VOMITING SINCE THIS MORNING. DENIES BLOOD IN EMESIS. STATES HE HAS 8/10 MID ABD SHARP, NONRAD AND CONSTANT PAIN. +N. -D, CHILLS AND FEVER. ABD IS NONDISTENDED, ACTIVE BOWEL SOUNDS X4. ALL NEEDS MET AT THIS TIME. PT AMBULATED TO RR AND BACK TO BED WITH STEADY GAIT. BED LOCKED IN LOWEST POSITION, SIDE RAILS X1. HX:ASTHMA RX:DENIES ALLER:DENIES Addendum: 09/07/21 at 2024 by MEDQC 36 YO M BIB SELF WITH C/C OF VOMITING X1 DAY, 2 EPISODES OF VOMITING SINCE THIS MORNING. DENIES BLOOD IN EMESIS. STATES HE HAS 8/10 MID ABD SHARP, NONRAD AND CONSTANT PAIN. +N. -D, CHILLS AND FEVER. ABD IS DISTENDED, ACTIVE BOWEL SOUNDS X4. TENDER TO TOUCH.ALL NEEDS MET AT THIS TIME. PT AMBULATED TO RR AND BACK TO BED WITH STEADY GAIT. BED LOCKED IN LOWEST POSITION, SIDE RAILS X1. HX:ASTHMA RX:DENIES ALLER:DENIES
[2021-09-07] MEDS: FAMOTIDINE 20 MG TAB PO ONE (20:36)
[2021-09-07] MEDS: ALUMINUM HYD/MAG/SIMETHICONE 30 ML UDC PO ONE (20:36)
[2021-09-07] MEDS: ONDANSETRON 4 MG TAB PO ONE (20:37)
--- NOTE | 2021-09-07 22:11 | NUR ---
PT IS AWAKE AND ALERT. STATED HIS PAIN CAME DOWN TO 4/10, STATES HE IS JUST TIRED. ALL NEEDS MET AT THIS TIME. LIGHTS TURNED DOWN FOR COMFORT. BED LOCKED IN LOWEST POSITION, SIDE RAILS X1.
--- NOTE | 2021-09-07 22:30 | NUR ---
PT GIVEN APPLE JUICE AND CRACKERS FOR PO CHALLENGE PER MAXINE SANABRIA.
--- NOTE | 2021-09-07 22:40 | NUR ---
PO CHALLENGE TOLERATED.
[2021-09-07 22:52] VITALS: BP 127/79
--- NOTE | 2021-09-07 22:52 | NUR ---
Patient discharged with v/s stable. Written and verbal after care instructions given and explained. Patient verbalized understanding. Ambulatory with steady gait. All questions addressed prior to discharge. Advised to follow up with PMD.
== END 2021-09-07 22:52 | disposition home or self-care (01) ==
LOC: MED 17:41
DX: K52.9 Noninfective gastroenteritis and colitis, unspecified (principal); R11.2 Nausea with vomiting, unspecified; J45.909 Unspecified asthma, uncomplicated; Z79.899 Other long term (current) drug therapy
CPT/HCPCS: 99285; Q0162

== ENCOUNTER 2022-03-08 07:10 | Emergency (ER) | payer OTHER ==
[~2022-03-08] VITALS: Ht 175.3 cm; Wt 79.6 kg
[~2022-03-08 07:10] MED LIST changes: +ONDA-188 PO; -ONDA-24 PO
[2022-03-08 07:12] VITALS: BP 140/95
--- NOTE | 2022-03-08 07:18 | NUR ---
Juvencio schrader in [facility] - 03/08/22 at 0720 by MED1 PATIENT AMBULATED TO BED 9.
--- NOTE | 2022-03-08 07:20 | NUR ---
PATIENT AMBULATED TO BED 12.
--- NOTE | 2022-03-08 07:25 | NUR ---
DR YO AT BEDSIDE
[2022-03-08] MEDS ORDERED: DICYCLOMINE HCL LIQUID 20 MG, ALUMINUM HYD/MAG/SIMETHICONE 30 ML, LIDOCAINE VISCOUS 2% ... PO ONE ×3 (07:30)
[2022-03-08] MEDS ORDERED: BISMUTH SUBSALICYLATE 15 ML UDBTL PO ONE (07:30)
[2022-03-08] MEDS ORDERED: ONDANSETRON 4 MG ODT PO ONE (07:30)
[2022-03-08] MEDS ORDERED: FAMOTIDINE 20 MG TAB PO ONE (07:30)
--- NOTE | 2022-03-08 07:30 | NUR ---
PT AMBULATED WITH STEADY GAIT TO BATHROOM
[2022-03-08] MEDS ORDERED: ONDANSETRON 4 MG/2 ML VIAL IVP ONE (07:35)
[2022-03-08] MEDS ORDERED: NACL 0.9% 1,000 ML IV ONE (07:35)
--- NOTE | 2022-03-08 07:49 | NUR ---
36 Y/O MALE BIB SELF C/O ABD PAIN 8/10 CRAMPING, YIP 7/10 PULSATING ON THE FRONT X3 DAYS. TOOK TUMS AND OTHER UNSPECIFIED NAUSEA MEDICATION WITH MINIMAL EFFECT. PT STATES THE PAIN STARTED AFTER EATING GREASY [place] FOOD AND TOP RAMEN AND PAIN IS EXACERBATED WITH EATING. NO VOMITING NOTED AT THIS TIME. NO BRUISING, ABDOMEN IS FLAT, HYPERACTIVE BOWEL SOUNDS IN ALL QUADTRANTS. PMH; ASTHMA NKA
[2022-03-08] MEDS ORDERED: DICYCLOMINE HCL LIQUID 10 MG/5 ML UDC ONE (07:51)
[2022-03-08] MEDS ORDERED: ALUMINUM HYD/MAG/SIMETHICONE 30 ML UDC ONE (07:51)
--- NOTE | 2022-03-08 07:53 | NUR ---
XRAY AT BEDSIDE
[2022-03-08 08:01] LABS: BASOPHILS # (AUTO) 0.1 K/uL (0.00-0.22); BASOPHILS % (AUTO) 1.1 % (0.0-2.0); EOSINOPHILS # (AUTO) 0.3 K/uL (0-0.4); EOSINOPHILS % (AUTO) 5.3 % (0.0-4.0); HEMOGLOBIN 16.3 g/dL (12.0-18.0); LYMPHOCYTES # (AUTO) 1.4 K/uL (2.0-11.5); LYMPHOCYTES % (AUTO) 28.3 % (20.5-51.1); MEAN CORPUSCULAR HEMOGLOBIN 30 pg (27-31); MEAN CORPUSCULAR HGB CONC 34 g/dL (33-37); MEAN CORPUSCULAR VOLUME 87.9 fL (80-94); MONOCYTES # (AUTO) 0.5 K/uL (0.8-1.0); MONOCYTES % (AUTO) 9.7 % (1.7-9.3); NEUTROPHILS # (AUTO) 2.7 K/uL (1.8-7.7); NEUTROPHILS % (AUTO) 55.6 % (42.2-75.2); PLATELET COUNT (AUTO) 263 K/uL (140-450); RED BLOOD CELL COUNT(AUTO) 5.46 MIL/uL (4.20-6.10); RED CELL DISTRIBUTION WIDTH 12.9 % (11.6-13.7); WHITE BLOOD COUNT (AUTO) 4.8 K/uL (4.8-10.8)
[2022-03-08 08:12] LABS: APPEARANCE,URINE CLEAR (CLEAR); BILIRUBIN,URINE NEGATIVE (NEGATIVE); BLOOD, URINE NEGATIVE (NEGATIVE); COLOR,URINE YELLOW (YELLOW); LEUKOCYTE ESTERASE ,URINE NEGATIVE (NEGATIVE); NITRITE, URINE NEGATIVE (NEGATIVE); PH,URINE 6.5 (5.0-9.0); UGLUCOSE NEGATIVE (NEGATIVE)
[2022-03-08 08:25] LABS: ALBUMIN 3.8 g/dL (3.4-5.0); ANION GAP 10.6 (8-16); CARBON DIOXIDE 31.1 mmol/L (21-32); POTASSIUM 4.7 mmol/L (3.5-5.1); TOTAL BILIRUBIN 0.4 mg/dL (0.0-1.0)
[2022-03-08] MEDS ORDERED: BEN10 PO (09:35)
[2022-03-08] MEDS ORDERED: ONDA-188 PO (09:35)
[2022-03-08] MEDS ORDERED: FAMO-90 PO (09:35)
[2022-03-08 09:50] VITALS: BP 130/95
--- NOTE | 2022-03-08 09:50 | NUR ---
Patient discharged with v/s stable. Written and verbal after care instructions ABOUT GASTRITIS given and explained. Patient alert, oriented and verbalized understanding of instructions. Ambulatory with steady gait. All questions addressed prior to discharge. ID band removed. Patient advised to follow up with PMD. Rx of ZOFRAN, PEPCID, BENTYL given. Patient educated on indication of medication including possible reaction and side effects. Opportunity to ask questions provided and answered.
== END 2022-03-08 09:50 | disposition home or self-care (01) ==
LOC: MED 07:10
DX: K29.70 Gastritis, unspecified, without bleeding (principal); K59.00 Constipation, unspecified; J45.909 Unspecified asthma, uncomplicated; Z79.899 Other long term (current) drug therapy
CPT/HCPCS: 36415; 74018; 80053; 81003; 83690; 85025; 96361; 96374; 99284; J2405; J7030

== ENCOUNTER 2022-04-06 19:50 | Emergency (ER) | payer OTHER ==
[~2022-04-06] VITALS: Ht 172.7 cm; Wt 86.2 kg
[~2022-04-06 19:50] MED LIST changes: +BEN10 PO
[2022-04-06 20:08] VITALS: BP 147/92
[2022-04-06] MEDS ORDERED: IBUPROFEN 600 MG TAB PO ONE (22:35)
[2022-04-06] MEDS ORDERED: ACETAMINOPHEN EXTRA STRENGTH 500 MG TAB PO ONE (22:35)
[2022-04-06 22:51] LABS: BASOPHILS # (AUTO) 0.1 K/uL (0.00-0.22); BASOPHILS % (AUTO) 0.8 % (0.0-2.0); EOSINOPHILS # (AUTO) 0.2 K/uL (0-0.4); EOSINOPHILS % (AUTO) 3.3 % (0.0-4.0); HEMATOCRIT 47.2 % (36-52); HEMOGLOBIN 16.1 g/dL (12.0-18.0); LYMPHOCYTES # (AUTO) 1.9 K/uL (2.0-11.5); LYMPHOCYTES % (AUTO) 24.9 % (20.5-51.1); MEAN CORPUSCULAR HEMOGLOBIN 30 pg (27-31); MEAN CORPUSCULAR HGB CONC 34 g/dL (33-37); MEAN CORPUSCULAR VOLUME 87.5 fL (80-94); MONOCYTES # (AUTO) 0.6 K/uL (0.8-1.0); MONOCYTES % (AUTO) 8.4 % (1.7-9.3); NEUTROPHILS # (AUTO) 4.7 K/uL (1.8-7.7); NEUTROPHILS % (AUTO) 62.6 % (42.2-75.2); PLATELET COUNT (AUTO) 258 K/uL (140-450); RED BLOOD CELL COUNT(AUTO) 5.39 MIL/uL (4.20-6.10); RED CELL DISTRIBUTION WIDTH 12.7 % (11.6-13.7); WHITE BLOOD COUNT (AUTO) 7.5 K/uL (4.8-10.8)
[2022-04-06] MEDS ORDERED: ACET-10509 PO (23:06)
[2022-04-06] MEDS ORDERED: IBUP-2213 PO (23:06)
[2022-04-06 23:21] VITALS: BP 147/92
--- NOTE | 2022-04-06 23:21 | NUR ---
Patient discharged with v/s stable. Written and verbal after care instructions given and explained. Patient alert, oriented and verbalized understanding of instructions. Ambulatory with steady gait. All questions addressed prior to discharge. ID band removed. Patient advised to follow up with PMD. Rx of TYLENOL & IBUPROFEN given. Patient educated on indication of medication including possible reaction and side effects. Opportunity to ask questions provided and answered.
== END 2022-04-06 23:21 | disposition home or self-care (01) ==
LOC: MED 19:50
DX: R51.9 Headache, unspecified (principal); J45.909 Unspecified asthma, uncomplicated; Z79.899 Other long term (current) drug therapy; Z79.1 Long term (current) use of non-steroidal anti-inflammatories (NSAID)
CPT/HCPCS: 36415; 85025; 99283

== ENCOUNTER 2023-01-15 09:59 | Emergency (ER) | payer OTHER ==
[~2023-01-15] VITALS: Ht 172.7 cm; Wt 82.1 kg
[~2023-01-15 09:59] MED LIST changes: +IBUP-2213 PO
[2023-01-15 10:12] VITALS: BP 122/83
--- NOTE | 2023-01-15 10:20 | NUR ---
37 Y/O MALE C/O COLD S/S, COUGH, NASAL CONGESTION, AND HEADACHE X5 DAYS, TOOK NIQUIL WITH MINIMAL RELIEF NKA PMH: ASTHMA
[2023-01-15] MEDS ORDERED: IBUP-2213 PO (10:46)
[2023-01-15] MEDS ORDERED: SUD30 PO (10:46)
[2023-01-15] MEDS ORDERED: PROM118S5 PO (10:46)
[2023-01-15] MEDS ORDERED: OXYM15SP72 NS (10:46)
--- NOTE | 2023-01-15 10:56 | NUR ---
Patient discharged with v/s stable. Written and verbal after care instructions ABOUT UPPER RESPIRATORY INFECTION given and explained. Patient alert, oriented and verbalized understanding of instructions. Ambulatory with steady gait. All questions addressed prior to discharge. ID band removed. Patient advised to follow up with PMD. Rx of MOTRIN, PROMETHAZINE DM, SUDAFED, AFRIN given. Patient educated on indication of medication including possible reaction and side effects. Opportunity to ask questions provided and answered.
== END 2023-01-15 10:56 | disposition home or self-care (01) ==
LOC: MED 09:59
DX: J06.9 Acute upper respiratory infection, unspecified (principal); J45.909 Unspecified asthma, uncomplicated; Z79.899 Other long term (current) drug therapy; Z79.1 Long term (current) use of non-steroidal anti-inflammatories (NSAID)
CPT/HCPCS: 99283

== ENCOUNTER 2023-04-24 09:51 | Emergency (ER) | payer BC, OTHER ==
[~2023-04-24] VITALS: Ht 172.7 cm; Wt 81.6 kg
[~2023-04-24 09:51] MED LIST changes: +OXYM15SP72 NS; +PROM118S5 PO; +SUD30 PO
[2023-04-24 09:59] VITALS: BP 118/80
[2023-04-24] MEDS ORDERED: DICYCLOMINE HCL LIQUID 20 MG, ALUMINUM HYD/MAG/SIMETHICONE 30 ML, LIDOCAINE VISCOUS 2% ... PO ONE ×3 (10:10)
[2023-04-24] MEDS ORDERED: DICYCLOMINE HCL LIQUID 10 MG/5 ML UDC ONE (10:13)
[2023-04-24] MEDS ORDERED: ALUMINUM HYD/MAG/SIMETHICONE 30 ML UDC ONE (10:13)
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
[2023-04-24] MEDS ORDERED: ONDANSETRON 4 MG ODT PO ONE (12:00)
[2023-04-24] MEDS ORDERED: KETOROLAC 60 MG/2 ML VIAL IM ONE (12:00)
--- NOTE | 2023-04-24 12:08 | NUR ---
MD MCKINNON AT BEDSIDE FOR EVALUATION
[2023-04-24] MEDS ORDERED: IBUP-2213 PO (12:42)
[2023-04-24] MEDS ORDERED: OMEP40EC24 PO (12:42)
[2023-04-24] MEDS ORDERED: ONDA8TAB87 PO (12:42)
[2023-04-24 12:50] VITALS: BP 121/80
--- NOTE | 2023-04-24 12:50 | NUR ---
The patient's care was reviewed and supervised by [facility], RN.
--- NOTE | 2023-04-24 12:50 | NUR ---
Patient discharged with v/s stable. Written and verbal after care instructions FOR N/V AND GERD given and explained. Patient alert, oriented and verbalized understanding of instructions. Ambulatory with steady gait. All questions addressed prior to discharge. ID band removed. Patient advised to follow up with PMD. Rx of IBUPROFEN,OMEPRAZOLE AND ZOFRAN given. Opportunity to ask questions provided and answered.
== END 2023-04-24 12:50 | disposition home or self-care (01) ==
LOC: MED 09:51
DX: R11.2 Nausea with vomiting, unspecified (principal); R10.13 Epigastric pain; J45.909 Unspecified asthma, uncomplicated; F17.200 Nicotine dependence, unspecified, uncomplicated; Z79.899 Other long term (current) drug therapy
CPT/HCPCS: 96372; 99283; J1885; Q0162